=== PATIENT | female | born 1995 | race African-American/Black ===

== ENCOUNTER 2016-09-26 14:23 | Emergency (ER) | payer OTHER ==
[~2016-09-26] VITALS: Ht 160 cm; Wt 67.7 kg
[2016-09-26 14:37] VITALS: Ht 160 cm; Wt 67.7 kg
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
[2016-09-26] MEDS ORDERED: NAPR-260 PO (20:17)
[2016-09-26] MEDS ORDERED: ACETAMINOPHEN 500 MG TAB PO STA (20:19)
[2016-09-26] MEDS ORDERED: ERYTOPOI BOTH EYES (20:51)
[2016-09-26] MEDS ORDERED: FLUORESCEIN STRIP LEFT EYE ONE (21:00)
[2016-09-26 21:01] VITALS: BP 114/55; PULSE 68; RESP 18; TEMP 98.2
== END 2016-09-26 21:02 | disposition home or self-care (01) ==
LOC: FTE 14:23
DX: S05.92XA Unspecified injury of left eye and orbit, initial encounter (principal); F17.210 Nicotine dependence, cigarettes, uncomplicated; R42 Dizziness and giddiness; S09.90XA Unspecified injury of head, initial encounter; Y04.0XXA Assault by unarmed brawl or fight, initial encounter
CPT/HCPCS: 70450; 70480